=== PATIENT | female | born 1945 | race Caucasian/White ===

== ENCOUNTER 2017-03-16 18:41 | Emergency (ER) | payer OTHER ==
[~2017-03-16] VITALS: Ht 165.1 cm; Wt 106.6 kg
--- NOTE | 2017-03-16 20:27 | ED THROAT/DENTAL COMPLAINT ---
History of Present Illness General Chief Complaint: Sore Throat, Dental Pain Stated Complaint: MOUTH ABSCESS Source: patient, old records Exam Limitations: no limitations Vital Signs & Intake/Output Vital Signs & Intake/Output Vital Signs Date Time Temp Pulse Resp B/P B/P Pulse O2 O2 Flow FiO2 Mean Ox Delivery Rate 03/16 1847 97.3 84 16 175/81 96 Room Air Allergies Coded Allergies: NO KNOWN ALLERGIES (12/10/13) Reconcile Medications Amlodipine Besylate/Benazepril (Amlodipine-Benazepril 5-20 MG) 5 MG-20 MG CAPSULE 1 CAP PO DAILY BP (Reported) Amoxicillin 500 MG CAPSULE 1 CAP PO TID ANTIBIOTIC (Reported) Aspirin (Ecotrin*) 81 MG TABLET.DR 1 TAB PO DAILY HEART/BLOOD (Reported) Cholecalciferol (Vitamin D3) (Vitamin D) 2,000 UNIT CAPSULE 2 CAP PO DAILY SUPPLEMENT (Reported) Clopidogrel Bisulfate (Clopidogrel) 75 MG TABLET 1 TAB PO DAILY BLOOD THINNER (Reported) Empagliflozin (Jardiance) 25 MG TABLET 1 TAB PO DAILY DM (Reported) Escitalopram Oxalate 10 MG TABLET 1 TAB PO DAILY MENTAL HEALTH (Reported) Exenatide Microspheres (Bydureon Pen) 2 MG/0.65 ML PEN.INJCTR 2 MG SC QMON DM (Reported) Insulin Aspart, Recombinant (Novolog Flexpen) 100 UNIT/ML INSULN.PEN 4 UNITS SC TIDAC DM (Reported) Insulin Degludec (Tresiba Flextouch U-200) 200 UNIT/ML (3 ML) INSULN.PEN 48 UNITS SC DAILY DM (Reported) Metformin HCl 500 MG TABLET 1 TAB PO BID DM (Reported) Metoprolol Tartrate 25 MG TABLET 1 TAB PO BID HEART/BP (Reported) Oxycodone HCl/Acetaminophen (Percocet 5-325 MG Tablet) 5 MG-325 MG TABLET 1 TAB PO BID PRN pain Rosuvastatin Calcium (Crestor) 40 MG TABLET 0.5 TAB PO DAILY CHOLESTEROL ( Reported) Tylenol With Codeine (Tylenol With Codeine #3 Tablet) 300 MG-30 MG TABLET 1 TAB PO Q6P PRN PAIN (Reported) Triage Note: PT STATES SHE HAS AN ABCESS IN THE RIGHT SIDE OF HER MOUTH SAW DENTIST THIS AM AND WAS GIVEN ABX AND TYLENOL WITH CODEIN. PT STATES THE ABCESS IS GETTING WORSE INSTEAD OF BETTER. Triage Nurses Notes Reviewed? yes Onset: Abrupt Duration: day(s): (2), constant, getting worse Timing: recent history Injury Environment: home Severity: moderate Severity Numbers: 9 No Modifying Factors: none Associated Symptoms: denies HPI: 71-year-old female with history of hypertension diabetes presents to ER for evaluation complain right-sided dental pain gingival swelling suspect for the past 2 days. She went to her dentist earlier today had an x-ray to confirm an abscess and she is put on amoxicillin and was prescribe Tylenol with Codeine. She took 2 doses of amoxicillin however the pain persists. Pain is worse with palpation no fever no chills no nausea no vomiting. No history of similar symptoms in the past and recent trauma or other injury. Past History Travel History Traveled to [place] past 21 day No Medical History Any Pertinent Medical History? see below for history Neurological: CVA 2013 TREMORS Cardiovascular: TRIPLE BYPASS 2004 Endocrine: DM History of MRSA: No History of VRE: No History of CDIFF: No Pneumonia Vaccine: 07/09/05 Influenza Vaccine: 07/09/13 Surgical History Surgical History: CABG Psychosocial History Who do you live with Spouse What is your primary language Icelandic Tobacco Use: Never used ETOH Use: denies use Illicit Drug Use: denies illicit drug use Family History Family History, If Any: MOTHER FH: breast cancer Relation not specified for: FH: cancer FH: heart disease Hx Contributory? No Review of Systems Review of Systems Constitutional: Reports: see HPI. Comments Review of systems: See HPI, All other systems negative. Constitutional, no chills no fever, no malaise HEENT:no sore throat no congestion Cardiovascular: No chest pain , no palpitation Skin: no rashes, no change in skin Respiratory: No dyspnea no cough no sputum GI: No nausea no vomiting, no diarrhea, : No dysuria Muscle skeletal: No joint pain, no back pain, no neck pain, Neurologic: No numbnessno headache Psych: No stress Heme/endocrine: No bruising Immunology: No lymphadenopathy Physical Exam Physical Exam General Appearance: well developed/nourished, no apparent distress, alert, awake Mouth/Throat: pharynx normal Comments: Well-developed well-nourished patient in no apparent distress. Head/Face: Atraumatic, no maxillary/frontal sinus tenderness, no facial swelling Eyes: PERRL, EOMI, no conjunctival injection. Ear:External auditory canaLs clear, no erythema Nose: atraumatic.Normal inspection: Throat: Right sided gingival swelling no appreciable abscess, Moist mucous membranes.Pharynx normal. No pharyngeal erythema/exudate seen. No stridor/ drooling or assymetry. No swelling or edema. No trismus no uvular displacement Neck: Supple, no lymphadenopathy, FROM Back: FROM Cardiovascular: Regular rate and rhythms no murmurs Respiratory: No respiratory distress. Patient speaking in full complete sentences. Breath sounds clear to auscultation bilaterally: NO W/R/R Extremities: full range of motion Neuro: awake, alert, and oriented to person, place and time. There were no obvious focal neurologic abnormalities. Skin: Warm & dry;No appreciable rash on exposed skin Psych: Mood affect normal, normal memory normal judgment. Core Measures ACS in differential dx? No Severe Sepsis Present: No Septic Shock Present: No Progress Differential Diagnosis: epiglottitis, Ludwigs angina, odontogenic abscess, abigail- tonsillar abscess, stomatitis/gingivitis, strep pharyngitis, tooth fracture Plan of Care: Orders Procedure Date/time Status FingerStick- Glucose 03/16 2101 Active Patient is medicated with Unasyn 3 g IV she'll follow up with oral surgeon. I had an extensive conversation regarding need for close follow up with their primary care physician this week as well as return precautions. I answered all of their questions, they feel comfortable with the plan and follow-up care. I discussed with the patient/family the medications that they will receive. I gave them signs and symptoms that could indicate an adverse reaction. I have advised them to limit their activities until they can see how they respond to the medication. (JAYLEEN MUJICA) Departure Departure Time of Disposition: 2148 Disposition: HOME OR SELF CARE Condition: Stable Clinical Impression Primary Impression: Gingival abscess Referrals: Mani RAMIREZ MD (PCP/Family) Additional Instructions: Continue taking the antibiotics as prescribed. Percocet for breakthrough pain follow-up with an oral surgeon this week use caution as Percocet is highly addictive no driving or drinking alcohol while taking this was sent to your pharmacy Departure Forms: Customer Survey General Discharge Information Prescriptions: Current Visit Scripts Oxycodone HCl/Acetaminophen (Percocet 5-325 MG Tablet) 1 TAB PO BID PRN pain #15 TAB
[2017-03-16] MEDS ORDERED: METOPROLOL TART25 M1 PO (21:19)
[2017-03-16] MEDS ORDERED: AMLODIPINE-BEN1 EAC2 PO (21:20)
[2017-03-16] MEDS ORDERED: CLOPIDOGREL75 M1 PO (21:20)
[2017-03-16] MEDS ORDERED: CRESTOR40 M2 PO (21:20)
[2017-03-16] MEDS ORDERED: ASPIRIN EC81 M1 PO (21:21)
[2017-03-16] MEDS ORDERED: VITAMIN D2000 UNIT PO (21:21)
[2017-03-16] MEDS ORDERED: TRESIBA FL200 UNIT/1 SC (21:22)
[2017-03-16] MEDS ORDERED: METFORMIN HCL500 M3 PO (21:22)
[2017-03-16] MEDS ORDERED: BYDUREON P2 MG/0.65 SC (21:23)
[2017-03-16] MEDS ORDERED: JARDIANCE25 M1 PO (21:23)
[2017-03-16] MEDS ORDERED: ESCITALOPRAM OX10 MG PO (21:24)
[2017-03-16] MEDS ORDERED: NOVOLOG FL100 UNIT/1 SC (21:24)
[2017-03-16] MEDS ORDERED: TYLENOL WITH C1 EACH PO (21:25)
[2017-03-16] MEDS ORDERED: AMOXICILLIN500 M2 PO (21:25)
[2017-03-16] MEDS ORDERED: PERCOCET 5-3251 EACH PO (21:58)
[2017-03-16 22:10] VITALS: BP 166/90
== END 2017-03-16 22:10 ==
LOC: ERH 18:41
DX: K05.319 Chronic periodontitis, localized, unspecified severity (principal)
CPT/HCPCS: 96374